=== PATIENT | male | born 1965 | race Caucasian/White ===

== ENCOUNTER 2024-10-09 19:34 | Inpatient (IN) | payer OTHER ==
[~2024-10-09] VITALS: Ht 177.8 cm; Wt 79.4 kg
[2024-10-09] VITALS (11 sets, daily range): BP systolic 115–147; BP diastolic 74–105; PULSE 60–70; RESP 13–16; TEMP 36.4–36.5; O2SAT 91–99
[2024-10-09] MEDS ORDERED: LIDOCAINE HCL 1% 20ML VIAL ONE (19:38)
[2024-10-09] MEDS ORDERED: IODIXANOL 320 MG/ML 150ML BOTTLE IV ONE (19:38)
[2024-10-09] MEDS ORDERED: HEPARIN 1000 UNITS/ML 10ML ONE (19:38)
[2024-10-09] MEDS: SODIUM CHLORIDE 0.9% 500 ML IV ONE (19:41)
[2024-10-09] MEDS: HEPARIN 5000 UNITS/ML VIAL IV ONE (19:41)
[2024-10-09] MEDS ORDERED: MIDAZOLAM HCL 2 MG/2 ML VIAL ONE (19:57)
[2024-10-09] MEDS ORDERED: FENTANYL CITRATE/PF 50MCG/ML 2ML VIAL ONE (19:57)
[2024-10-09] MEDS ORDERED: EPINEPHRINE 0.1MG/ML (1:10,000) 10ML SYR ONE (19:58)
[2024-10-09] MEDS ORDERED: IODIXANOL 320MG/ML 100 ML BOTTLE IV ONE (20:15)
[2024-10-09] MEDS ORDERED: CLOPIDOGREL 75MG TABLET ONE (20:22)
[2024-10-09 20:23] LABS: BASOPHILS % 0.8 % (0.0-2.0); EOSINOPHILS % 2.4 % (0.0-5.0); HEMATOCRIT. 41.5 % (42.0-52.0); HEMOGLOBIN. 14.1 g/dL (14.0-18.0); LYMPHOCYTES % 39.9 % (20.0-50.0); MEAN CORPUSCULAR HEMOGLOBIN 27.4 pg (28.0-32.0); MEAN CORPUSCULAR HGB CONC 33.9 g/dL (31.0-37.0); MEAN PLATELET VOLUME 9.3 fl (7.4-10.4); MONOCYTES % 6.6 % (2.0-8.0); NEUTROPHILS % 50.3 % (40.0-76.0); PLATELET 326 x1000/uL (130-400); RED BLOOD CELL COUNT 5.13 mill/uL (4.7-6.1); RED CELL DISTRIBUTION WIDTH 13.7 % (11.6-14.6); WHITE BLOOD COUNT 9.6 x1000/uL (4.5-11.0)
[2024-10-09 20:35] LABS: CARBON DIOXIDE 25 mEq/L (21-32); CHLORIDE 107 mEq/L (98-107); POTASSIUM 3.4 mEq/L (3.5-5.1); SODIUM 141 mEq/L (136-145)
[2024-10-09 20:36] LABS: CALCIUM 10.2 mg/dL (8.7-10.4)
[2024-10-09 20:41] LABS: CREATININE 1.3 mg/dL (0.6-1.3); GLUCOSE 149 mg/dL (70-105); TROPONIN I HIGH SENSITIVITY 12 ng/L (3.0-53); UREA NITROGEN BLOOD 17 mg/dL (9-23)
[2024-10-09] MEDS ORDERED: ZOLPIDEM TARTRATE 5MG TABLET PO PRN (21:15)
[2024-10-09] MEDS ORDERED: DOCUSATE SODIUM 100MG CAPSULE PO PRN (21:15)
[2024-10-09] MEDS ORDERED: ACETAMINOPHEN 325MG TABLET PO PRN ×2 (21:15)
[2024-10-09] MEDS ORDERED: ONDANSETRON HCL 4MG/2ML INJ IV PRN (21:15)
[2024-10-09] MEDS ORDERED: MAGNESIUM/ALUMINUM HYDROXIDE/SIMETHICONE 30ML UDC PO PRN (21:15)
[2024-10-09] MEDS ORDERED: IPRATROPIUM/ALBUTEROL 0.5-3(2.5)MG/3ML NEB HHN PRN (21:15)
[2024-10-09] MEDS ORDERED: CLONIDINE 0.1MG TABLET PO PRN (21:15)
[2024-10-09] MEDS ORDERED: GUAIFENESIN 200MG/10ML SUGAR FREE UDC PO PRN (21:15)
[2024-10-09] MEDS: SODIUM CHLORIDE 0.9% 1,000 ML IV SCH (21:43)
[2024-10-09] MEDS: CARVEDILOL 3.125 MG TABLET PO SCH (21:44)
[2024-10-09] MEDS: ATORVASTATIN CALCIUM 40MG TABLET PO SCH (21:44)
[2024-10-09] MEDS ORDERED: NALOXONE HCL 0.4MG/ML VIAL IV PRN (21:45)
[2024-10-09] MEDS ORDERED: MORPHINE SULFATE 2 MG/ML INJ (NOT FOR IM USE) IV PRN (21:45)
[2024-10-09] MEDS ORDERED: INSULIN GLARGINE 100 UNITS/ML SUBCUT SCH (22:00)
[2024-10-09] MEDS ORDERED: DEXTROSE 50% WATER 50ML SYRINGE IV PRN ×2 (23:00→23:30)
[2024-10-09] MEDS ORDERED: METF500S9 PO (23:09)
[2024-10-09 23:10] LABS: PHOSPHORUS 1.9 mg/dL (2.5-4.9)
[2024-10-09 23:13] LABS: T4 FREE 1.21 ng/dL (0.89-1.76); THYROID STIMULATING HORMONE 1.75 uIU/mL (0.55-4.78)
[2024-10-10] VITALS (74 sets, daily range): BP systolic 92–162; BP diastolic 60–107; PULSE 54–84; RESP 11–24; TEMP 36.6–37.1; O2SAT 93–100
[2024-10-10] MEDS: POTASSIUM PHOSPHATE 20 MMOL in DEXT 5% WATER 243.3333 ML IV NR (04:04)
[2024-10-10 04:14] LABS: *AMPHETAMINES SCREEN URINE NEGATIVE (NEGATIVE); *BARBITURATES SCREEN URINE NEGATIVE (NEGATIVE); *BENZODIAZEPINES SCREEN URINE PRESUMPTIVE POSITIVE (NEGATIVE); *COCAINE SCREEN URINE NEGATIVE (NEGATIVE); CANNABINOID URINE SCREEN NEGATIVE (NEGATIVE); ECSTASY MDMA SCREEN URINE NEGATIVE (NEGATIVE); METHADONE URINE SCREEN NEGATIVE (NEGATIVE); OPIATES URINE SCREEN NEGATIVE (NEGATIVE); PHENCYCLIDINE URINE SCREEN NEGATIVE (NEGATIVE)
[2024-10-10 04:46] LABS: CLARITY URINE CLEAR (CLEAR); COLOR URINE YELLOW (YELLOW); GLUCOSE URINE 2+ (NEGATIVE); KETONES URINE TRACE (NEGATIVE); LEUKOCYTE ESTERASE URINE NEGATIVE (NEGATIVE); NITRITE URINE NEGATIVE (NEGATIVE); OCCULT BLOOD URINE NEGATIVE (NEGATIVE); PROTEIN URINE NEGATIVE (NEGATIVE); SPECIFIC GRAVITY URINE 1.027 (1.005-1.030)
[2024-10-10 05:04] LABS: SQUAMOUS EPITHELIAL CELL URINE NONE SEEN /lpf (RARE/1+)
[2024-10-10 05:05] LABS: BACTERIA URINE NONE SEEN; RBC URINE NONE SEEN /hpf (0-2); WBC URINE 0-2 /hpf (0-2)
[2024-10-10 06:12] LABS: BASOPHILS % 0.7 % (0.0-2.0); EOSINOPHILS % 1.5 % (0.0-5.0); HEMATOCRIT. 39.9 % (42.0-52.0); HEMOGLOBIN. 13.3 g/dL (14.0-18.0); LYMPHOCYTES % 29.3 % (20.0-50.0); MEAN CORPUSCULAR HEMOGLOBIN 27.4 pg (28.0-32.0); MEAN CORPUSCULAR HGB CONC 33.3 g/dL (31.0-37.0); MEAN CORPUSCULAR VOLUME 82.1 fL (80.0-94.0); MONOCYTES % 8.2 % (2.0-8.0); NEUTROPHILS % 60.3 % (40.0-76.0); PLATELET 218 x1000/uL (130-400); RED BLOOD CELL COUNT 4.86 mill/uL (4.7-6.1); RED CELL DISTRIBUTION WIDTH 13.8 % (11.6-14.6); WHITE BLOOD COUNT 6.9 x1000/uL (4.5-11.0)
[2024-10-10 06:36] LABS: CARBON DIOXIDE 25 mEq/L (21-32); CHLORIDE 107 mEq/L (98-107); POTASSIUM 3.8 mEq/L (3.5-5.1); SODIUM 139 mEq/L (136-145)
[2024-10-10 06:37] LABS: CALCIUM 8.8 mg/dL (8.7-10.4)
[2024-10-10 06:39] LABS: CREATINE KINASE MB FRACTION 35.6 ng/mL (0.5-3.6)
[2024-10-10 06:41] LABS: GLUCOSE 100 mg/dL (70-105)
[2024-10-10 06:42] LABS: UREA NITROGEN BLOOD 15 mg/dL (9-23)
[2024-10-10 06:44] LABS: PHOSPHORUS 3.3 mg/dL (2.5-4.9)
[2024-10-10] MEDS: INSULIN LISPRO 100 UNITS/ML SUBCUT SCH (07:50)
[2024-10-10] MEDS: BLOOD SUGAR DIAGNOSTIC STRIP TEST SCH (08:12)
[2024-10-10] MEDS: ASPIRIN 81MG EC TABLET PO SCH (08:41)
[2024-10-10] MEDS: CETIRIZINE 10MG TABLET PO SCH (08:41)
[2024-10-10] MEDS: PANTOPRAZOLE 40MG DR TABLET PO SCH (08:41)
[2024-10-10] MEDS: ENOXAPARIN 40MG/0.4ML SYR SUBCUT SCH (08:43)
[2024-10-10] MEDS: NITROGLYCERIN 0.4MG TABLET SL SL PRN (09:32)
[2024-10-10] MEDS: CLOPIDOGREL 75MG TABLET PO NR (10:47)
[2024-10-11] VITALS (44 sets, daily range): BP systolic 99–142; BP diastolic 65–87; PULSE 60–76; RESP 11–20; TEMP 36.8–37.1; O2SAT 93–99
[2024-10-11 06:40] LABS: BASOPHILS % 0.4 % (0.0-2.0); EOSINOPHILS % 1.9 % (0.0-5.0); HEMOGLOBIN. 13.6 g/dL (14.0-18.0); LYMPHOCYTES % 25.9 % (20.0-50.0); MEAN CORPUSCULAR HEMOGLOBIN 27.4 pg (28.0-32.0); MEAN CORPUSCULAR HGB CONC 33.1 g/dL (31.0-37.0); MEAN CORPUSCULAR VOLUME 82.7 fL (80.0-94.0); MEAN PLATELET VOLUME 9.1 fl (7.4-10.4); MONOCYTES % 6.9 % (2.0-8.0); NEUTROPHILS % 64.9 % (40.0-76.0); PLATELET 211 x1000/uL (130-400); RED BLOOD CELL COUNT 4.95 mill/uL (4.7-6.1); RED CELL DISTRIBUTION WIDTH 13.8 % (11.6-14.6); WHITE BLOOD COUNT 8.5 x1000/uL (4.5-11.0)
[2024-10-11 07:12] LABS: CARBON DIOXIDE 26 mEq/L (21-32); CHLORIDE 106 mEq/L (98-107); POTASSIUM 3.7 mEq/L (3.5-5.1); SODIUM 141 mEq/L (136-145)
[2024-10-11 07:13] LABS: CALCIUM 8.9 mg/dL (8.7-10.4)
[2024-10-11 07:18] LABS: CREATININE 1.1 mg/dL (0.6-1.3); GLUCOSE 110 mg/dL (70-105); UREA NITROGEN BLOOD 13 mg/dL (9-23)
[2024-10-11] MEDS: CLOPIDOGREL 75MG TABLET PO SCH (08:21)
[2024-10-11] MEDS ORDERED: PANT40TA51 PO (10:23)
[2024-10-11] MEDS ORDERED: CLOP-31 PO (10:23)
[2024-10-11] MEDS ORDERED: LIP40 PO (10:23)
[2024-10-11] MEDS ORDERED: NITR0.4T49 SL (10:23)
[2024-10-11] MEDS ORDERED: COR3 PO (10:23)
[2024-10-11] MEDS ORDERED: ASPI-1406 PO (10:23)
== END 2024-10-11 13:49 | disposition home or self-care (01) | DRG 322 ==
LOC: ER 19:34 → EDBEDREQ 19:43 → CVICU 20:47
PROVIDERS: ADMIT Hospitalist; ATTEND Hospitalist
PROC: 027035Z Dilation of Coronary Artery, One Artery with Two Drug-eluting Intraluminal Devices, Percutaneous Approach (ICD-10-PCS; principal; 2024-10-09)
PROC: 02C03ZZ Extirpation of Matter from Coronary Artery, One Artery, Percutaneous Approach (ICD-10-PCS; 2024-10-09)
PROC: 4A023N7 Measurement of Cardiac Sampling and Pressure, Left Heart, Percutaneous Approach (ICD-10-PCS; 2024-10-09)
PROC: B211YZZ Fluoroscopy of Multiple Coronary Arteries using Other Contrast (ICD-10-PCS; 2024-10-09)
PROC: B215YZZ Fluoroscopy of Left Heart using Other Contrast (ICD-10-PCS; 2024-10-09)
PROC: B240ZZ3 Ultrasonography of Single Coronary Artery, Intravascular (ICD-10-PCS; 2024-10-09)
DX: I21.3 ST elevation (STEMI) myocardial infarction of unspecified site (principal); E78.5 Hyperlipidemia, unspecified; I10 Essential (primary) hypertension; E83.39 Other disorders of phosphorus metabolism; E11.9 Type 2 diabetes mellitus without complications; E87.6 Hypokalemia; Z79.02 Long term (current) use of antithrombotics/antiplatelets; Z98.61 Coronary angioplasty status; Z79.82 Long term (current) use of aspirin; Z87.891 Personal history of nicotine dependence; Z79.899 Other long term (current) drug therapy; Z82.49 Family history of ischemic heart disease and other diseases of the circulatory system
CPT/HCPCS: 36415; 71045; 80048; 80061; 80305; 81003; 82550; 82553; 82962; 83036; 83735; 84100; 84439; 84443; 84484; 85025; 85347; 86850; 86900; 92941; 92973; 92978; 93005; 93306; 93458; 99291; A4606; C1753; C1769; C1874; C1887; C1893; J1644; J1650; J1815; J2250; J3010; J3490; J7030; J7040; J7060; Q9967